=== PATIENT | male | born 1980 ===

== ENCOUNTER 2024-12-07 12:22 | Outpatient (REF) | payer OTHER, SELFPAY ==
--- NOTE | ~2024-12-07 | XR_ITS ---
CLINICAL HISTORY: Left foot pain. 3 view left foot Comparison: None provided Findings: Bones intact. No dislocations. No significant arthritic change or erosions. No ankle effusion. No radiopaque foreign body. IMPRESSION: 1. No acute findings. This document has been electronically signed by: Will Escalante MD on 12/07/2024 13:26:26
--- OUTSIDE RECORDS SUMMARY | 2024-12-07 12:29 | XMS_ITS ---
Author Name [facility] Organization Unknown Care Team Organization Name Specialty Phone Email Start Date End Da te [facility] NULL Primary Care 03/08/2022 12/18/2023
--- OUTSIDE RECORDS SUMMARY | 2024-12-07 12:29 | XMS_ITS | Clinical Summary ---
Author Organization [facility] Address [address] [place] [address] Phone Care Team Providers Care Public Health Director Name Role Phone Donny Garza MD Primary Care Provider [phone] Allergies No known active allergies Social History Tobacco Use Types Packs/Day Years Used Date Smoking Tobacco: Never Assessed Sex and Gender Information Value Date Recorded Sex Assigned at Male 05/07/2024 4:22 PM EST Legal Sex Male 9:37 PM EDT Gender Identity Male 05/07/2024 4:22 PM EST Sexual Orientation Straight 05/07/2024 4: 22 PM EST Obstetrics History Last Filed Vital Signs Vital Sign Reading Time Taken Comments Blood Pressure 149/104 05/07/2024 4:05 PM EST Pulse 100 05/07/2024 4:05 PM EST Temperature 36.8 C (98.2 F) 05/07/2024 4:05 PM EST Respiratory Rate 18 05/07/2024 4:05 PM EST Oxygen Saturation 98% 05/07/2024 4:05 PM EST Inhaled Oxygen Concentration - - Weight 97.1 kg (214 lb) 05/07/2024 4:05 PM EST Height 180.3 cm (5' 11 ) 05/07/2024 4:05 PM EST Body Mass Index 29.85 05/07/2024 4:05 PM EST Plan of Treatment Upcoming Encounters Date Type Department Care Team ([facility] st Contact Info) Description 02/03/2025 8:15 AM EDT Office Visit Orthopedic Surgery - [place] [address] [place] [address] Faisal Martinez, DPPeggy [address] [place] [address] Health Maintenance Due Date Last Done Comments Hepatitis B Vaccines (1 of 3 - 19+ 3-dose series) 1999 Cholesterol Screening (Lipid Panel) 09/17/2021 HIV Screening 09/17/2021 Hepatitis C Screening 09/17/2021 Social Influencers of Health Screening 09/17/2021 COVID-19 Vaccine (3 - season) 2023 11/20/2020, 10/28/2020 DTaP,Tdap,and Td Vaccines (2 - Td or Tdap) 01/12/2024 01/11/2014 Depression Screening 05/01/2024 Hypertension/CHF/CAD Annual BMP Blood Test 05/08/2024 Influenza Vaccine (#1) 2024 , 03/26/2021, 02/13/2020, Additional history exists HIB Vaccines Aged Out No longer eligi ble based on patient's age to complete this topic HPV Vaccines Aged Out No longer eligi ble based on patient's age to complete this topic Hepatitis A Vaccines Aged Out No long er eligible based on patient's age to complete this topic IPV Vaccines Aged Out No longer eligi ble based on patient's age to complete this topic MMR Vaccines Aged Out No longer eligi ble based on patient's age to complete this topic Meningococcal ACWY Vaccine Aged Out N o longer eligible based on patient's age to complete this topic Meningococcal B Vaccine Aged Out No l onger eligible based on patient's age to complete this topic Pneumococcal Vaccine: Pediatrics (0 to 5 Years) and At-Risk Patients (6 to 49 Years) Aged Out No longer eligible based on patient's age to complete this topic RSV Immunization Patients Under 20 months Aged Out No longer eligible based on patient's age to complete this topic Varicella Vaccines Aged Out No longer eligible based on patient's age to complete this topic Insurance [employer] Care Teams Public Health Director Relationship Specialty Start Date End Date Donny Garza MD [address] [place] [address] [phone] PCP - General Internal Medicine 05/07/24
== END 2024-12-07 12:23 | disposition home or self-care (01) ==
LOC: HO.HMGCX 12:22
PROVIDERS: PCP Internal Medicine; Visit Provider Physician Assistant Medical
DX: M79.672 Pain in left foot (principal)
CPT/HCPCS: 73630

== ENCOUNTER → 2024-12-07 12:34 | Outpatient (BNV) | payer OTHER, SELFPAY | PROVIDERS: PCP Internal Medicine; Visit Provider Radiology Diagnostic Radiology | DX: M79.671 Pain in right foot (principal) | CPT/HCPCS: 73630 ==